=== PATIENT | female | born 1945 | race Two or more races ===

== ENCOUNTER 2020-09-20 15:17 | Inpatient (IN) | payer OTHER ==
[~2020-09-20] VITALS: Ht 167.6 cm; Wt 63.0 kg
[2020-09-20 17:00] LABS: Basophils # (auto) 0 10 ^3/uL (0-0.2); Basophils % (auto) 0.1 % (0.0-2.0); Eosinophils # (auto) 0 10 ^3/uL (0-0.8); Eosinophils % (auto) 0.1 % (0.0-7.0); Hemoglobin 14.5 g/dL (12.2-16.2); Lymphocytes # (auto) 0.4 10 ^3/uL (0.4-5.4); Lymphocytes % (auto) 5.9 % (10.0-50.0); Mean Corpuscular Hemoglobin 31.8 pg (28.0-32.0); Mean Corpuscular Hgb Conc. 33.1 g/dL (32.0-36.0); Mean Corpuscular Volume 96.3 fL (80.0-100.0); Monocytes # (auto) 0.5 10 ^3/uL (0-1.3); Monocytes % (auto) 7.3 % (0.0-12.0); Neutrophils # (auto) 5.7 10 ^3/uL (1.6-8.6); Neutrophils % (auto) 86.6 % (37.0-80.0); Nucleated Red Blood Cells % 0.1 %; Platelet Count (auto) 361 10^3/uL (140-450); Red Blood Cells 4.57 10^6/uL (4.0-5.20); Red Cell Distribution Width 12.8 % (11.8-14.3); White Blood Cell 6.6 10^3/uL (4.4-10.8)
[2020-09-20 17:05] LABS: Albumin 3.3 g/dL (3.4-5.0); Anion Gap 12 (5-15); Blood Urea Nitrogen 12 mg/dL (7-18); Carbon Dioxide 23 mmol/L (21-32); Chloride 100 mmol/L (98-107); Glucose 87 mg/dL (74-106); Potassium 3.5 mmol/L (3.5-5.1); Sodium 135 mmol/L (136-145)
[2020-09-20 17:06] LABS: Alanine Aminotransferase 11 U/L (13-56); Aspartate Aminotransferase 20 U/L (15-37); BUN/Creatinine Ratio 12.2; GFR African American 72 mL/min; GFR Non-African American 59 mL/min
[2020-09-20 17:23] LABS: Lactate Dehydrogenase 227 U/L (84-246)
[2020-09-20 17:58] LABS: Alkaline Phosphatase 71 U/L (45-117); Bilirubin, Total 0.3 mg/dL (0.2-1.0); Total Protein 8.7 g/dL (6.4-8.2)
[2020-09-20] MEDS ORDERED: NITROGLYCERIN 0.4 MG SL TAB SL PRN (19:00)
[2020-09-20] MEDS ORDERED: MORPHINE SULF INJ 2 MG/ML SYRINGE 1ML IV PRN (19:00)
[2020-09-20] MEDS ORDERED: SODIUM CHLORIDE 0.9% 1,000 ML IV SCH (19:00)
[2020-09-20] MEDS ORDERED: ALBUTEROL SULF HFA 90MCG INH 200DOSE IN SCH (22:00)
[2020-09-21] MEDS: ACETAMINOPHEN 500 MG TAB PO PRN (03:08)
[2020-09-21] MEDS: DOXYCYCLINE 100MG/250ML 250 ML IV SCH ×3 (03:08→23:59)
[2020-09-21] MEDS: FAMOTIDINE 20 MG TAB PO SCH (03:12)
[2020-09-21 07:35] LABS: Basophils # (auto) 0 10 ^3/uL (0-0.2); Basophils % (auto) 0.2 % (0.0-2.0); Eosinophils # (auto) 0 10 ^3/uL (0-0.8); Eosinophils % (auto) 0.4 % (0.0-7.0); Hematocrit 36.5 % (36.0-46.0); Hemoglobin 12.3 g/dL (12.2-16.2); Lymphocytes # (auto) 0.7 10 ^3/uL (0.4-5.4); Mean Corpuscular Hemoglobin 32.2 pg (28.0-32.0); Mean Corpuscular Hgb Conc. 33.7 g/dL (32.0-36.0); Mean Corpuscular Volume 95.6 fL (80.0-100.0); Monocytes # (auto) 0.6 10 ^3/uL (0-1.3); Monocytes % (auto) 11.5 % (0.0-12.0); Neutrophils # (auto) 3.8 10 ^3/uL (1.6-8.6); Neutrophils % (auto) 73.9 % (37.0-80.0); Platelet Count (auto) 333 10^3/uL (140-450); Red Blood Cells 3.82 10^6/uL (4.0-5.20); Red Cell Distribution Width 12.5 % (11.8-14.3); White Blood Cell 5.2 10^3/uL (4.4-10.8)
[2020-09-21 07:55] LABS: Albumin 2.6 g/dL (3.4-5.0); BUN/Creatinine Ratio 14.8; Calcium 8.2 mg/dL (8.5-10.1); Potassium 3.2 mmol/L (3.5-5.1)
[2020-09-21 07:57] LABS: Bilirubin, Total 0.4 mg/dL (0.2-1.0); Total Protein 6.9 g/dL (6.4-8.2)
[2020-09-21] MEDS: BUDESONIDE (INHALATION) 180 MCG IH IN SCH ×2 (09:26→21:42)
--- NOTE | 2020-09-21 10:00 | NUR ---
Report Received report from INTEGRATION SPECIALIST, Benjamín Taylor.
--- NOTE | 2020-09-21 10:20 | NUR ---
Patient Arrived Patient arrived to unit from ER. Patient currently sitting up in bed, no signs of distress at this time AOx4. Patient currently on 2L nasal cannula, denies shortness of breath at this time. Safety precautions in place, will continue to monitor q1hr and PRN.
[2020-09-21] MEDS: ZINC SULFATE 220mg CAP or TAB PO SCH (10:42)
[2020-09-21] MEDS: ASCORBIC ACID 1,000 MG TAB PO SCH (10:42)
[2020-09-21] MEDS: DexAMETHasone SOD PHOS 10MG/1ML VIAL INJ IV SCH (10:42)
[2020-09-21] MEDS: ENOXAPARIN SOD 40 MG/0.4 ML SYRINGE SC SCH (10:43)
[2020-09-21] MEDS: CHOLECALCIFEROL (VITD3) 2,000 UNIT CAP PO SCH (10:43)
[2020-09-21 11:45] VITALS: BP_SYST 130; BP_SYST 93; BP_DIAS 57; BP_DIAS 73
[2020-09-21] MEDS: ALBUTEROL SULF HFA 90MCG INH 200DOSE IN SCH ×2 (13:30→21:42)
[2020-09-21] MEDS ORDERED: DULO60CA PO (14:54)
[2020-09-21] MEDS ORDERED: GABA300C10 PO (14:54)
[2020-09-21] MEDS ORDERED: SIMV10TA84 PO (14:54)
[2020-09-21 15:56] LABS: Urine Bacteria FEW /hpf (None Seen); Urine Blood Negative /uL (Negative); Urine Mucus FEW (None Seen); Urine Specific Gravity 1.018 (1.001-1.035); Urine WBC 4 /hpf (0 - 5)
--- NOTE | 2020-09-21 16:18 | NUR ---
Left message for Dr. Tavarez regarding communication order for Remdesivir.
--- NOTE | 2020-09-21 16:33 | NUR ---
MD Received return call from Dr. Tavarez. Per , give 500ml bolus of .9 NS and start patient at .9NS at 100/hr e9Vwmnd prior to medication administration (Remdesivir).
[2020-09-21] MEDS ORDERED: SODIUM CHLORIDE 0.9% 500 ML IV ONE (16:45)
[2020-09-21] MEDS ORDERED: SODIUM CHLORIDE 0.9% 1,000 ML IV ONE (16:45)
[2020-09-21 17:00] VITALS: BP 112/67
--- NOTE | 2020-09-21 17:05 | NUR ---
Bolus 500mL Bolus .9NS started per Dr. Tavarez order.
[2020-09-21] MEDS ORDERED: REMDESIVIR PER PHARMACY IV SCH (17:30)
--- NOTE | 2020-09-21 18:20 | NUR ---
Consents Medication consents sent to pharmacy.
--- NOTE | 2020-09-21 19:29 | NUR ---
Closing Shift Note Endorsed care to NOC Susanne SUÁREZ. RN aware of pending MD orders.
[2020-09-21 20:00] VITALS: BP 129/79
[2020-09-21] MEDS ORDERED: REMDESIVIR 200 MG in NS 210ml LOADING DOSE ADULT IV ONE (20:00)
--- NOTE | 2020-09-21 23:00 | NUR ---
remdesivir infusion ended remdesivir infusion ended at this time. patient tolerated well, no nausea/vomit/fever/chills reported. pre v/s-hr-76,bp-106/63,o2-97%,temp-98.7,rr-22 v/s 15 min after administration:hr-68,b/p-115/76,o2-93%,temp-98.4,rr-19 v/s post infusion:hr-82,b/p-115/68,o2-93%,temp-98.6,rr-19
[2020-09-22 03:42] VITALS: BP 129/79
[2020-09-22 05:00] VITALS: BP 112/81
--- NOTE | 2020-09-22 06:19 | NUR ---
ARABELLA (DAUGHTER) PHONE NUMBER [phone]
[2020-09-22] MEDS: BUDESONIDE (INHALATION) 180 MCG IH IN SCH ×2 (06:24→22:00)
[2020-09-22] MEDS: ALBUTEROL SULF HFA 90MCG INH 200DOSE IN SCH ×3 (06:24→22:00)
--- NOTE | 2020-09-22 06:41 | NUR ---
END OF SHIFT NOTES WILL ENDORSE CARE TO DAY SHIFT RN,PT A0X4, NO S/S OF DISTRESS OR SOB
--- NOTE | 2020-09-22 07:30 | NUR ---
Opening Shift Note RECEIVED REPORT FROM NOC RN. Assumed care of patient, awake and alert. PATIENT ON OXYGEN AT 2 LPM VIA NASAL CANNULE WITH no S/S of distress/SOB or pain. BED IN LOWEST, LOCKED POSITION WITH SIDERAILS UP x2 AND CALL LIGHT WITHIN REACH. Instructed on POC and to call for assist PRN, will continue to monitor for changes Q1hr and PRN.
[2020-09-22 08:43] LABS: Albumin 2.7 g/dL (3.4-5.0); Calcium 8.9 mg/dL (8.5-10.1); Potassium 3.1 mmol/L (3.5-5.1)
[2020-09-22 08:51] LABS: BUN/Creatinine Ratio 11.9; Bilirubin, Total 0.4 mg/dL (0.2-1.0); CRP High Sensitivity 6.78 mg/dL (< 0.3); Total Protein 7.3 g/dL (6.4-8.2)
[2020-09-22 08:56] VITALS: BP 118/55
[2020-09-22] MEDS: DexAMETHasone SOD PHOS 10MG/1ML VIAL INJ IV SCH (10:00)
[2020-09-22] MEDS: CHOLECALCIFEROL (VITD3) 2,000 UNIT CAP PO SCH (10:25)
[2020-09-22] MEDS: ASCORBIC ACID 1,000 MG TAB PO SCH (10:25)
[2020-09-22] MEDS: DOXYCYCLINE 100MG/250ML 250 ML IV SCH ×2 (10:25→22:10)
[2020-09-22] MEDS: ENOXAPARIN SOD 40 MG/0.4 ML SYRINGE SC SCH (10:25)
[2020-09-22] MEDS: ZINC SULFATE 220mg CAP or TAB PO SCH (10:25)
[2020-09-22] MEDS ORDERED: POTASSIUM CHL 20 Meq TABLET PO ONE (11:00)
[2020-09-22 13:00] VITALS: BP 119/62
--- NOTE | 2020-09-22 13:22 | NUR ---
Nutrition Assessment/Consult Notes Please refer to link for full assessment notes. Est Energy needs: 1206-9634 kcals (20-23 kcal/kgBW) Est Protein needs: 63-69 gms/day (1.0-1.1 gm/kgBW) Will continue to monitor and reassess prn. Addendum: 09/22/20 at [address] Amended: Links added.
[2020-09-22 17:00] VITALS: BP 14/63
[2020-09-22] MEDS: REMDESIVIR 100mg in NS 230ml DAILYx4DAYS (NO VENT) IV SCH (17:09)
[2020-09-22 21:45] VITALS: BP 118/75
[2020-09-22] MEDS: FAMOTIDINE 20 MG TAB PO SCH ×2 (22:10)
[2020-09-22] MEDS: ACETAMINOPHEN 500 MG TAB PO PRN (22:11)
--- NOTE | 2020-09-23 06:37 | NUR ---
END OF SHIFT NOTES WILL ENDORSE CARE TO DAY SHIFT RN,PT A0X4, NO S/S OF DISTRESS OR SOB
[2020-09-23 06:56] LABS: Basophils # (auto) 0 10 ^3/uL (0-0.2); Eosinophils # (auto) 0 10 ^3/uL (0-0.8); Hemoglobin 12.7 g/dL (12.2-16.2); Lymphocytes # (auto) 1.1 10 ^3/uL (0.4-5.4); Mean Corpuscular Hemoglobin 31.9 pg (28.0-32.0); Mean Corpuscular Volume 95.1 fL (80.0-100.0); Monocytes # (auto) 0.7 10 ^3/uL (0-1.3)
[2020-09-23 06:59] LABS: Basophils % (auto) 0.3 % (0.0-2.0); Eosinophils % (auto) 0.3 % (0.0-7.0); Hematocrit 37.7 % (36.0-46.0); Lymphocytes % (auto) 17.8 % (10.0-50.0); Mean Corpuscular Hgb Conc. 33.6 g/dL (32.0-36.0); Monocytes % (auto) 10.8 % (0.0-12.0); Neutrophils # (auto) 4.5 10 ^3/uL (1.6-8.6); Neutrophils % (auto) 70.8 % (37.0-80.0); Nucleated Red Blood Cells % 0.1 %; Platelet Count (auto) 520 10^3/uL (140-450); Red Blood Cells 3.96 10^6/uL (4.0-5.20); White Blood Cell 6.3 10^3/uL (4.4-10.8)
[2020-09-23 07:09] LABS: Potassium 3.9 mmol/L (3.5-5.1)
[2020-09-23] MEDS: BUDESONIDE (INHALATION) 180 MCG IH IN SCH ×2 (07:12→22:26)
[2020-09-23] MEDS: ALBUTEROL SULF HFA 90MCG INH 200DOSE IN SCH ×3 (07:12→22:25)
[2020-09-23 07:21] LABS: Albumin 2.6 g/dL (3.4-5.0); BUN/Creatinine Ratio 19.4; Bilirubin, Total 0.3 mg/dL (0.2-1.0); CRP High Sensitivity 3.04 mg/dL (< 0.3); Calcium 8.9 mg/dL (8.5-10.1); Total Protein 6.8 g/dL (6.4-8.2)
--- NOTE | 2020-09-23 07:30 | NUR ---
Opening Shift Note RECEIVED REPORT FROM NOC RN. Assumed care of patient, awake and alert. PATIENT ON OXYGEN AT 2 LPM VIA NASAL CANNULA WITH no S/S of distress/SOB or pain. BED IN LOWEST, LOCKED POSITION WITH SIDERAILS UP x2 AND CALL LIGHT WITHIN REACH. Instructed on POC and to call for assist PRN, will continue to monitor for changes Q1hr and PRN.
[2020-09-23 08:36] VITALS: BP 112/51
[2020-09-23] MEDS: DexAMETHasone SOD PHOS 10MG/1ML VIAL INJ IV SCH (10:13)
[2020-09-23] MEDS: DOXYCYCLINE 100MG/250ML 250 ML IV SCH ×2 (10:13→22:13)
[2020-09-23] MEDS: ZINC SULFATE 220mg CAP or TAB PO SCH (10:13)
[2020-09-23] MEDS: ASCORBIC ACID 1,000 MG TAB PO SCH (10:14)
[2020-09-23] MEDS: ENOXAPARIN SOD 40 MG/0.4 ML SYRINGE SC SCH (10:14)
[2020-09-23] MEDS: CHOLECALCIFEROL (VITD3) 2,000 UNIT CAP PO SCH (10:14)
[2020-09-23] MEDS: PROMETHAZINE HCL 25 MG/ML 1ML IV PRN (12:03)
[2020-09-23 12:41] VITALS: BP 119/66
[2020-09-23 16:41] VITALS: BP 122/62
[2020-09-23] MEDS: REMDESIVIR 100mg in NS 230ml DAILYx4DAYS (NO VENT) IV SCH (17:14)
--- NOTE | 2020-09-23 18:15 | NUR ---
DR. Malu FINK AT BEDSIDE.
[2020-09-23 21:22] VITALS: BP 107/64
[2020-09-23] MEDS: FAMOTIDINE 20 MG TAB PO SCH (22:12)
[2020-09-24] MEDS: PROMETHAZINE HCL 25 MG/ML 1ML IV PRN (00:05)
[2020-09-24 05:12] VITALS: BP 110/63
[2020-09-24] MEDS: BUDESONIDE (INHALATION) 180 MCG IH IN SCH (06:05)
[2020-09-24] MEDS: ALBUTEROL SULF HFA 90MCG INH 200DOSE IN SCH ×2 (06:05→13:47)
--- NOTE | 2020-09-24 06:36 | NUR ---
END OF SHIFT NOTES WILL ENDORSE CARE TO DAY SHIFT RN,PT A0X4, NO S/S OF DISTRESS OR SOB
[2020-09-24 07:36] LABS: Eosinophils # (auto) 0 10 ^3/uL (0-0.8); Lymphocytes # (auto) 0.4 10 ^3/uL (0.4-5.4); Platelet Count (auto) 536 10^3/uL (140-450)
[2020-09-24 07:37] LABS: Basophils # (auto) 0 10 ^3/uL (0-0.2); Basophils % (auto) 0.1 % (0.0-2.0); Hematocrit 39.8 % (36.0-46.0); Hemoglobin 13.3 g/dL (12.2-16.2); Lymphocytes % (auto) 7.2 % (10.0-50.0); Mean Corpuscular Hgb Conc. 33.4 g/dL (32.0-36.0); Mean Corpuscular Volume 95.8 fL (80.0-100.0); Monocytes # (auto) 0.7 10 ^3/uL (0-1.3); Monocytes % (auto) 11.4 % (0.0-12.0); Neutrophils # (auto) 4.8 10 ^3/uL (1.6-8.6); Neutrophils % (auto) 81.3 % (37.0-80.0); Red Blood Cells 4.15 10^6/uL (4.0-5.20); Red Cell Distribution Width 13.3 % (11.8-14.3)
[2020-09-24 07:53] LABS: Albumin 2.7 g/dL (3.4-5.0); Calcium 9.2 mg/dL (8.5-10.1); Potassium 4.2 mmol/L (3.5-5.1)
[2020-09-24 07:58] LABS: BUN/Creatinine Ratio 22.9; Bilirubin, Total 0.4 mg/dL (0.2-1.0); Total Protein 6.7 g/dL (6.4-8.2)
[2020-09-24 09:00] VITALS: BP 114/71
[2020-09-24] MEDS ORDERED: DOXY-338 PO (09:58)
[2020-09-24] MEDS ORDERED: ZINCCAP PO (09:58)
[2020-09-24] MEDS ORDERED: DEXA6TAB6 PO (09:58)
[2020-09-24] MEDS ORDERED: CHOL1CAP47 PO (09:58)
[2020-09-24] MEDS ORDERED: ASCO500T11 GT (09:58)
[2020-09-24] MEDS ORDERED: ALBUAER3 IN (09:58)
[2020-09-24] MEDS ORDERED: ATORVASTATIN 20 MG TAB PO SCH (10:00)
[2020-09-24] MEDS ORDERED: DULoxetine HCL 30 MG CAP PO SCH (10:00)
[2020-09-24] MEDS: DexAMETHasone SOD PHOS 10MG/1ML VIAL INJ IV SCH (10:00)
[2020-09-24] MEDS: DOXYCYCLINE 100MG/250ML 250 ML IV SCH (10:00)
--- NOTE | 2020-09-24 10:09 | NUR ---
MD Jung GOODE CONTACT CALLED RN UP UPDATE ON POC. ALL QUESTIONS AND CONCERNS ADDRESSED AT THIS TIME
--- NOTE | 2020-09-24 11:42 | NUR ---
MILTON GANT. RE: PENDING DISCHARGE CLEARANCE. AWAITING CALL BACK
--- NOTE | 2020-09-24 11:52 | NUR ---
UNABLE TO OBTAIN IV ACCESS WRITER ATTEMPTED IV WELL RESOURCE, PATIENT STATES "DI I REALLY NEED THIS TEST I JUST NEED TO GO HOME AND I REALLY DONT WANT ANOTHER TEST" RN TO NOTIFY
[2020-09-24] MEDS: CHOLECALCIFEROL (VITD3) 2,000 UNIT CAP PO SCH (11:57)
[2020-09-24] MEDS: ENOXAPARIN SOD 40 MG/0.4 ML SYRINGE SC SCH (11:57)
[2020-09-24] MEDS: ASCORBIC ACID 1,000 MG TAB PO SCH (11:57)
[2020-09-24] MEDS: ZINC SULFATE 220mg CAP or TAB PO SCH (11:57)
--- NOTE | 2020-09-24 12:36 | NUR ---
MD GANT RETURNED PAGE PER PATIENT IS CLEARED FOR DISCHARGE FROM PULMONARY STANDPOINT
--- NOTE | 2020-09-24 12:50 | NUR ---
REPAGED MD Malu GOODE RE: PULMONARY CLEARANCE AND PATIENT REFUSING TEST DUE TO INABILITY TO OBTAIN IV ACCESS. AWAITING CALL BACK
[2020-09-24 12:52] VITALS: BP 122/89
[2020-09-24 12:56] VITALS: BP 130/71
--- NOTE | 2020-09-24 15:38 | NUR ---
MILTON GOODE RE: [facility] AND PATIENT IS UNABLE TO GET MEDICATIONS. PATIENT WOULD LIKE MEDICATION TO BE FILLED AT A PHARMACY CLOSER TO HER ON [address] AWAITING CALL BACK
--- NOTE | 2020-09-24 16:19 | NUR ---
CALLED PRESCRIPTION IN TO [address], [address], [id number] SPOKE WITH PHARMACIST DES
[2020-09-24] MEDS: REMDESIVIR 100mg in NS 230ml DAILYx4DAYS (NO VENT) IV SCH (16:21)
[2020-09-24 16:43] VITALS: BP 122/72
--- NOTE | 2020-09-24 16:57 | NUR ---
Discharge instructions given as ordered. Encourage to follow up with PMD as instructed. All questions and concerns addressed. Patient verbalized understanding. Medication reconciliation form completed and copy given to patient. IV removed with catheter intact, pressure dressing applied, andres catheter removed. Telemetry unit returned to ICU. Patient taken to vehicle via wheelchair with COVID PROTOCAL INITIATED AND all personal belongings, accompanied by staff and family member. No distress noted at time of departure.
--- NOTE | 2020-09-26 11:01 | NUR ---
Weekend floor person-I did not receive a page regarding the social service consult (09/23)for this patient.
== END 2020-09-24 16:47 | disposition home or self-care (01) | DRG 177 ==
LOC: ER 15:17 → EDBD 15:17 → OVERFLOW 15:18 → TELE-CENTR 09-21 11:02
PROVIDERS: ADMIT Hospitalist; ATTEND Hospitalist
PROC: XW033E5 Introduction of Remdesivir Anti-infective into Peripheral Vein, Percutaneous Approach, New Technology Group 5 (ICD-10-PCS; principal; 2020-09-21)
DX: U07.1 COVID-19 (principal); J12.89 Other viral pneumonia; J96.01 Acute respiratory failure with hypoxia; E78.5 Hyperlipidemia, unspecified; E87.6 Hypokalemia; F32.9 Major depressive disorder, single episode, unspecified; K21.9 Gastro-esophageal reflux disease without esophagitis
CPT/HCPCS: 36415; 71045; 80053; 81001; 82728; 83615; 83735; 83880; 84443; 84484; 85025; 85379; 86141; 87040; 87426; 93970; 94640; 99291; G0378; J1100; J3490

== ENCOUNTER 2022-08-24 15:04 | Emergency (ER) | payer OTHER ==
[~2022-08-24] VITALS: Ht 149.9 cm; Wt 63.7 kg
[~2022-08-24 15:04] MED LIST: ALBUAER3 IN; ASCO500T11 GT; CHOL1CAP47 PO; DEXA6TAB6 PO; DOXY-338 PO; DULO60CA PO; GABA300C10 PO; SIMV10TA84 PO; ZINCCAP PO
[2022-08-24 16:03] VITALS: BP 128/68
[2022-08-24] MEDS ORDERED: ACETAMINOPHEN 500 MG TAB PO ONE (17:30)
[2022-08-24] MEDS ORDERED: ACET-1080 PO (17:52)
== END 2022-08-24 17:58 | disposition home or self-care (01) ==
LOC: ER 15:04
DX: S52.501A Unspecified fracture of the lower end of right radius, initial encounter for closed fracture (principal); S00.83XA Contusion of other part of head, initial encounter; M75.102 Unspecified rotator cuff tear or rupture of left shoulder, not specified as traumatic; M77.8 Other enthesopathies, not elsewhere classified; Z88.2 Allergy status to sulfonamides; Z88.8 Allergy status to other drugs, medicaments and biological substances; Z79.899 Other long term (current) drug therapy; W18.00XA Striking against unspecified object with subsequent fall, initial encounter; Y93.89 Activity, other specified; Y92.89 Other specified places as the place of occurrence of the external cause; Y99.8 Other external cause status
CPT/HCPCS: 29125; 73030; 73110